=== PATIENT | female | born 1980 | race Caucasian/White ===

== ENCOUNTER 2018-01-09 04:01 | Inpatient (IN) ==
[2018-01-09] MEDS ORDERED: OXYTOCIN/LR 20 UNIT/1,000 ML BAG IV SCH (04:30)
[2018-01-09] MEDS: LACTATED RINGERS 1,000 ML IV SCH ×2 (04:50→10:17)
[2018-01-09] MEDS: ONDANSETRON 4 MG/2 ML VIAL IV PRN ×2 (04:56→10:13)
[2018-01-09] MEDS ORDERED: CITRIC ACID/SODIUM CITRATE 30 ML UDCUP PO PRN (05:07)
[2018-01-09] MEDS ORDERED: FAMOTIDINE 20 MG/2 ML VIAL IV PRN (05:07)
[2018-01-09] MEDS ORDERED: ePHEDrine 50 MG/ML AMP IV PRN (05:09)
[2018-01-09 05:40] LABS: Basophils # 0.1 10*3/uL (0.0-0.2); Basophils % 0.4 % (0.0-0.8); Eosinophils # 0.3 10*3/uL (0.0-0.87); Eosinophils % 2.4 % (0.00-10.9); Hematocrit 29.2 VOL% (35.7-47.0); Hemoglobin 9.2 GM/DL (12.0-16.0); Immature Granulocytes % 0.6 %; Immature Granulocytes Absolute 0.07 #; Lymphocytes # 3.4 10*3/uL (1.4-4.0); Lymphocytes % 27.9 % (21.3-54.2); Mean Corpuscular HGB Conc 31.5 GM/DL (32-36); Mean Corpuscular Hemoglobin 28 PG (27-34); Mean Corpuscular Volume 87.7 FL (87-102); Mean Platelet Volume 11.6 FL (9.6-12.0); Monocytes % 8.4 % (1.7-12.7); Neutrophils # 7.3 10*3/uL (1.4-7.4); Neutrophils % 60.3 % (38.7-73.9); Platelet Count 264 T/CUMM (130-400); Red Blood Count 3.33 MC/CUMM (3.8-5.5); Red Cell Distribution Width 16.8 % (9.3-17.3); White Blood Count 12.1 T/CUMM (4-12)
[2018-01-09] MEDS: ALUMINUM/MAGNES/SIMETH MAX STR 30 ML UDCUP PO PRN (05:45)
[2018-01-09 06:10] LABS: Alanine Aminotransferase 14 U/L (13-56); Albumin 2.2 G/DL (3.4-5.0); Alkaline Phosphatase 171 U/L (45-117); Aspartate Amino Transferase 9 U/L (0-37); Bilirubin,Total < 0.39 MG/DL (0.2-1.0); Blood Urea Nitrogen 7 MG/DL (7-18); Calcium 7.8 MG/DL (8.5-10.1); Glucose 88 MG/DL (74-106); Osmolality,Calculated 273.5 MOS/KG (273-304); Potassium 3.7 MMOL/L (3.5-5.1); Sodium 139 MMOL/L (136-145); Total Protein 6.1 G/DL (6.4-8.3)
[2018-01-09] MEDS ORDERED: ALBUTEROL/IPRATROPIUM 3 ML NEB RESP TX ONE (07:41)
[2018-01-09 08:15] LABS: Barbiturates Screen,Urine Negative (Negative); Benzodiazepines Screen,Urine Negative (Negative); Cannabinoid Screen,Urine Negative (Negative); Opiate Screen,Urine Negative (Negative); Phencyclidine Screen,Urine Negative (Negative)
[2018-01-09] MEDS ORDERED: DINOPROSTONE VAG GEL 10 MG SYRINGE VAG ONE (08:23)
[2018-01-09 08:49] LABS: Apearance,Urine Slightly Hazy (Clear); Bacteria,Urine Occasional /HPF (Few); Bilirubin,Urine Negative (Negative); Blood, Urine Negative (Negative); Glucose,Urine (UA) Negative (Negative); Ketones,Urine Negative (Negative); Mucus,Urine Occasional /LPF (Occasional); Nitrite,Urine Negative (Negative); Protein,Urine Negative; RBC,Urine 6 /HPF (0-4); Squamous Epithelial Cell,Urine Few /HPF (0-10); Urine Color Yellow (Yellow); Urine Specific Gravity 1.011 (1.001-1.035); Urine Urobilinogen < 2.0 EU/DL (0.2-1.0); WBC,Urine 3 /HPF (0-6)
[2018-01-09] MEDS: MEPERIDINE 50 MG/1 ML VIAL IV PRN (10:14)
[2018-01-09 12:54] LABS: Apearance,Urine CLEAR (Clear); Bilirubin,Urine Negative (Negative); Blood, Urine Negative (Negative); Glucose,Urine (UA) Negative (Negative); Ketones,Urine Negative (Negative); Nitrite,Urine Negative (Negative); Protein,Urine Negative; Squamous Epithelial Cell,Urine Occasional /HPF (0-10); Urine Color Yellow (Yellow); Urine Specific Gravity 1.006 (1.001-1.035); Urine Urobilinogen < 2.0 EU/DL (0.2-1.0); WBC,Urine <1 /HPF (0-6)
[2018-01-09] MEDS ORDERED: ACETAMINOPHEN 500 MG TABLET PO PRN (20:00)
[2018-01-09] MEDS: fentaNYL 2 MCG/ROPIV 0.2% EPID 150 ML EPIDURAL SCH (20:00)
[2018-01-10] MEDS: fentaNYL 2 MCG/ROPIV 0.2% EPID 150 ML EPIDURAL SCH ×2 (03:00→10:08)
[2018-01-10] MEDS: LACTATED RINGERS 1,000 ML IV SCH (03:01)
[2018-01-10] MEDS: ALUMINUM/MAGNES/SIMETH MAX STR 30 ML UDCUP PO PRN (04:50)
[2018-01-10] MEDS ORDERED: OXYTOCIN/LR 20 UNIT/1,000 ML BAG IV SCH (06:30)
[2018-01-10] MEDS ORDERED: diphenhydrAMINE 50 MG/1 ML VIAL IV PRN (07:18)
[2018-01-10] MEDS: MEPERIDINE 50 MG/1 ML VIAL IV PRN ×2 (07:55→10:23)
[2018-01-10] MEDS: ONDANSETRON 4 MG/2 ML VIAL IV PRN (08:14)
[2018-01-10] MEDS ORDERED: FAMOTIDINE 20 MG/2 ML VIAL IV SCH (09:00)
[2018-01-10] MEDS ORDERED: BENZOCAINE 20%/MENTHOL 0.5% SPRAY 56 GM CAN TOP PRN (15:51)
[2018-01-10] MEDS ORDERED: MEASLES/MUMPS/RUBELLA VACCINE 0.5 ML VIAL SUBCUT ONE (15:51)
[2018-01-10] MEDS ORDERED: ACETAMINOPHEN 325 MG TABLET PO PRN (15:51)
[2018-01-10] MEDS ORDERED: RHO(D) IMMUNE GLOBULIN 300 MCG SYRINGE IM ONE (15:51)
[2018-01-10] MEDS ORDERED: HYDROCORTISONE 2.5% RECTAL CREAM 30 GM TUBE TOP PRN (15:51)
[2018-01-10] MEDS ORDERED: WITCH HAZEL PADS 100/JAR TOP PRN (15:51)
[2018-01-10] MEDS ORDERED: BISACODYL 10 MG SUPP RECTAL PRN (15:51)
[2018-01-10] MEDS ORDERED: ACETAMINOPHEN/CODEINE 300-30 MG TABLET PO PRN (15:51)
[2018-01-10] MEDS ORDERED: oxyCODONE/ACETAMINOPHEN 5-325 MG TABLET PO PRN (15:51)
[2018-01-10] MEDS ORDERED: DIPH/TET/ACEL PERT BOOSTER VACCINE 0.5 ML VIAL IM ONE (15:51)
[2018-01-10] MEDS ORDERED: LANOLIN 50% CREAM 0.3 OZ TUBE TOP PRN (15:51)
[2018-01-10] MEDS: IBUPROFEN 800 MG TABLET PO PRN (17:34)
[2018-01-10] MEDS ORDERED: OXYTOCIN/LR 20 UNIT/1,000 ML BAG IV ONE ×2 (20:38)
[2018-01-10] MEDS ORDERED: METHYLERGONOVINE 0.2 MG/1 ML AMP IM ONE (20:38)
[2018-01-10] MEDS ORDERED: METHYLERGONOVINE 0.2 MG/1 ML AMP ONE (20:41)
[2018-01-10] MEDS ORDERED: ONDANSETRON 4 MG/2 ML VIAL ONE (21:04)
[2018-01-10] MEDS ORDERED: MEPERIDINE 25 MG/1 ML VIAL IM ONE (21:05)
[2018-01-10] MEDS ORDERED: PROMETHAZINE 25 MG/1 ML VIAL IM ONE (21:06)
[2018-01-10] MEDS ORDERED: MEPERIDINE 50 MG/1 ML VIAL ONE (21:12)
[2018-01-10] MEDS: DOCUSATE SODIUM 100 MG CAPSULE PO SCH (23:30)
[2018-01-11] MEDS: IBUPROFEN 800 MG TABLET PO PRN ×3 (03:16→23:28)
[2018-01-11] MEDS: oxyCODONE/ACETAMINOPHEN 5-325 MG TABLET PO PRN ×4 (03:16→20:14)
[2018-01-11 08:04] LABS: Basophils # 0.1 10*3/uL (0.0-0.2); Basophils % 0.3 % (0.0-0.8); Eosinophils # 0.3 10*3/uL (0.0-0.87); Eosinophils % 1.1 % (0.00-10.9); Hematocrit 26.7 VOL% (35.7-47.0); Hemoglobin 8.7 GM/DL (12.0-16.0); Immature Granulocytes % 0.8 %; Lymphocytes # 4.6 10*3/uL (1.4-4.0); Lymphocytes % 18.2 % (21.3-54.2); Mean Corpuscular HGB Conc 32.6 GM/DL (32-36); Mean Corpuscular Hemoglobin 28 PG (27-34); Mean Corpuscular Volume 85.3 FL (87-102); Mean Platelet Volume 12.2 FL (9.6-12.0); Monocytes # 1.7 10*3/uL (0.11-0.8); Monocytes % 6.9 % (1.7-12.7); Neutrophils # 18.2 10*3/uL (1.4-7.4); Neutrophils % 72.7 % (38.7-73.9); Platelet Count 321 T/CUMM (130-400); Red Blood Count 3.13 MC/CUMM (3.8-5.5); Red Cell Distribution Width 17.1 % (9.3-17.3)
[2018-01-11] MEDS: FERROUS SULFATE 325 MG TABLET PO SCH ×2 (08:11→20:14)
[2018-01-11] MEDS: DOCUSATE SODIUM 100 MG CAPSULE PO SCH ×2 (08:11→20:14)
[2018-01-11 08:36] LABS: Band Neutrophils 8 % (0-10); Eosinophils 2 % (0-10); Lymphocytes 24 % (20-55); Segmented Neutrophils 63 % (50-85); Total Cells Counted 100
[2018-01-11 08:37] LABS: Anisocytosis 1+; Platelet Estimate Normal
[2018-01-12] MEDS: oxyCODONE/ACETAMINOPHEN 5-325 MG TABLET PO PRN ×2 (03:16→09:23)
[2018-01-12 07:10] VITALS: BP 102/58
[2018-01-12] MEDS: FERROUS SULFATE 325 MG TABLET PO SCH (08:19)
[2018-01-12] MEDS: DOCUSATE SODIUM 100 MG CAPSULE PO SCH (08:19)
== END 2018-01-12 11:50 | disposition home or self-care (01) | DRG 775 ==
LOC: N.LD 04:01 → N.OB 01-10 15:46
PROVIDERS: ADMIT Obstetrics & Gynecology; ATTEND Obstetrics & Gynecology